=== PATIENT | female | born 1955 | race Caucasian/White ===

== ENCOUNTER 2019-09-10 05:46 | Inpatient (IN) | payer OTHER ==
[2019-08-18 12:02] VITALS: BMI 36.1
[2019-09-10] MEDS ORDERED: MIDAZOLAM HCL 2 MG/2 ML SINGLE DOSE VIAL ONE ×2 (06:54→08:48)
[2019-09-10] MEDS ORDERED: SODIUM CHLORIDE 0.9% P/F 10 ML VIAL IJ ONE (06:54)
[2019-09-10] MEDS ORDERED: BUPIVACAINE LIPOSOME/PF (EXPAREL) 266 MG/20 ML VIAL ONE (06:54)
[2019-09-10] MEDS ORDERED: TRANEXAMIC ACID 1000 MG/10 ML VIAL IVPUSH ONE (07:28)
[2019-09-10] MEDS ORDERED: CEFAZOLIN 2 GM in DEXTROSE 5%-WATER - 50 ML IVPB ONE (07:28)
[2019-09-10] MEDS ORDERED: ceFAZolin SODIUM 1 GM VIAL ONE ×2 (07:45→11:27)
[2019-09-10] MEDS ORDERED: TRANEXAMIC ACID 1000 MG/10 ML VIAL ONE ×2 (07:45→11:27)
[2019-09-10] MEDS ORDERED: PROPOFOL 20 ML ONE ×8 (07:53→11:57)
[2019-09-10] MEDS ORDERED: SUCCINYLCHOLINE CHLORIDE 200 MG/10 ML SYRINGE ONE (07:53)
[2019-09-10] MEDS ORDERED: BUPIVACAINE HCL/PF 0.5% (5MG/ML) 10 ML VIAL ONE (07:56)
[2019-09-10] MEDS ORDERED: VANCOMYCIN 1,000 MG VIAL (RESTRICTED TO ID ONLY) ONE (09:14)
[2019-09-10] MEDS ORDERED: oxyCODONE HCL 5 MG TABLET PO PRN ×2 (10:14)
[2019-09-10] MEDS ORDERED: ONDANSETRON 4 MG/2 ML VIAL IVPUSH PRN ×2 (10:14→11:53)
[2019-09-10] MEDS ORDERED: BENZOIN/ALOE VERA/STORAX/TOLU 58 ML BOTTLE ONE (11:15)
[2019-09-10] MEDS ORDERED: MAGNESIUM HYDROX 2400MG/30ML ORAL SUSPENSION 30 ML CUP PO PRN (11:53)
[2019-09-10] MEDS ORDERED: MAG HYDROX/AL HYDROX/SIMETH 30 ML UNIT-DOSE CUP PO PRN (11:53)
[2019-09-10] MEDS ORDERED: LACTATED RINGERS SOLUTION 1,000 ML IV SCH (12:00)
--- NOTE | 2019-09-10 12:05 | PN ---
Progress Note (short form) - Note Progress Note: S/P L TKA POD #0 - Pain control. -DVT PPx: -Chemical: ASA 81 mg po BID x 6 weeks -Mechanical: AGA's, SCD's -Incentive Spirometry. -PT/OT/Rehab, OOB. -WBAT LLE -f/u drain output -f/u am labs. -Care per medical hospitalist team. -Discharge planning: f/u [facility] rehabilitation worker for appointment: -Will follow. Mino Gonsales MD (Orthopaedic Surgery)
--- NOTE | 2019-09-10 12:07 | OP ---
Operative Note - Note: Operative Date: 09/10/19 Pre-Operative Diagnosis: Left knee osteoarthritis Operation: Left Total knee Arthroplasty Post-Operative Diagnosis: Same as Pre-op Surgeon: Mino Gonsales Project Scheduler: Ross Gonsales Anesthesiologist/SHEARER [employer] BOARDS: Myron Mlaik Anesthesia: Spinal, Local (block with sedation) Specimens Removed: distal femur, proximal tibia, partial patela Estimated Blood Loss (mls): 150 Drains & Tubes with Location: Hemavac Operative Report Dictated: Yes
[2019-09-10] MEDS ORDERED: ONDANSETRON 4 MG/2 ML VIAL ONE (12:58)
[2019-09-10] MEDS: ACETAMINOPHEN 325 MG TABLET (FP) PO SCH ×3 (13:15→23:50)
[2019-09-10] MEDS: LACTATED RINGERS SOLUTION 1,000 ML IV SCH (13:15)
[2019-09-10] MEDS ORDERED: ACETAMINOPHEN 325 MG TABLET (FP) ONE (13:23)
[2019-09-10] MEDS ORDERED: HYDROmorphone HCL 2 MG TABLET PO PRN (13:50)
[2019-09-10] MEDS: FERROUS SO4 325 MG TABLET (FP) PO SCH (18:01)
[2019-09-10] MEDS: CEFAZOLIN 1 GM/D5W 1 GM/50 ML BAG IVPB SCH ×2 (18:02→23:51)
--- NOTE | 2019-09-10 19:40 | HP ---
HISTORY OF PRESENT ILLNESS: 64 year-old female with a PMH significant for kidney stones, recurrent UTIs, and left knee degenerative joint disease s/p left total knee arthroplasty on with Dr. Mino Gonsales. Recent Travel: No PAST MEDICAL HISTORY: Kidney stones Recurrent UTIs PAST SURGICAL HISTORY: Gastric bypass Social History: Smoking: no Alcohol: social Drugs: no Family history: non-contributory Allergies oxycodone Adverse Reaction (Severe, Verified 09/10/19 06:57) Vomiting HOME MEDICATIONS: Home Medications Medication Instructions Recorded Ascorbic Acid [Vitamin C] 500 mg PO DAILY 08/18/19 Cholecalciferol (Vitamin D3) 2,000 unit PO DAILY 08/18/19 [Vitamin D3] Cyanocobalamin [Vitamin B12 -] 1,000 mcg PO DAILY 08/18/19 Ferrous Sulfate 325 mg PO DAILY 08/18/19 Sulfamethoxazole/Trimethoprim 1 tab PO BID 09/10/19 [Bactrim Ds -] REVIEW OF SYSTEMS CONSTITUTIONAL: Absent: fever, chills, diaphoresis, generalized weakness, malaise, loss of appetite, weight change HEENT: Absent: rhinorrhea, nasal congestion, throat pain, throat swelling, difficulty swallowing, mouth swelling, ear pain, eye pain, visual changes CARDIOVASCULAR: Absent: chest pain, syncope, palpitations, irregular heart rate, lightheadedness , peripheral edema RESPIRATORY: Absent: cough, shortness of breath, dyspnea with exertion, orthopnea, wheezing, stridor, hemoptysis GASTROINTESTINAL: Absent: abdominal pain, abdominal distension, nausea, vomiting, diarrhea, constipation, melena, hematochezia GENITOURINARY: Absent: dysuria, frequency, urgency, hesitancy, hematuria, flank pain, genital pain MUSCULOSKELETAL: Absent: myalgia, arthralgia, joint swelling, back pain, neck pain SKIN: Absent: rash, itching, pallor HEMATOLOGIC/IMMUNOLOGIC: Absent: easy bleeding, easy bruising, lymphadenopathy, frequent infections ENDOCRINE: Absent: unexplained weight gain, unexplained weight loss, heat intolerance, cold intolerance NEUROLOGIC: Absent: headache, focal weakness or paresthesias, dizziness, unsteady gait, seizure, mental status changes, bladder or bowel incontinence PSYCHIATRIC: Absent: anxiety, depression, suicidal or homicidal ideation, hallucinations. PHYSICAL EXAMINATION Vital Signs - 24 hr 09/10/19 09/10/19 09/10/19 06:58 12:30 12:35 Temperature 98.2 F 97.5 F L Pulse Rate 73 61 61 Respiratory 16 12 12 Rate Blood Pressure 135/82 132/77 128/72 O2 Sat by Pulse 98 98 Oximetry (%) 09/10/19 09/10/19 09/10/19 12:40 12:45 13:00 Temperature 97.5 F L Pulse Rate 61 61 61 Respiratory 12 12 12 Rate Blood Pressure 128/72 125/66 125/65 O2 Sat by Pulse 98 98 98 Oximetry (%) 09/10/19 09/10/19 09/10/19 13:15 13:18 14:11 Temperature 97.5 F L 97.4 F L Pulse Rate 61 61 62 Respiratory 12 12 18 Rate Blood Pressure 126/72 126/72 118/71 O2 Sat by Pulse 98 98 100 Oximetry (%) GENERAL: Awake, alert, and fully oriented, in no acute distress. HEAD: Normal with no signs of trauma. EYES: Pupils equal, round and reactive to light, extraocular movements intact, sclera anicteric, conjunctiva clear. No lid lag. EARS, NOSE, THROAT: Ears normal, nares patent, oropharynx clear without exudates. Moist mucous membranes. NECK: Normal range of motion, supple without lymphadenopathy, JVD, or masses. LUNGS: Breath sounds equal, clear to auscultation bilaterally. No wheezes, and no crackles. No accessory muscle use. HEART: Regular rate and rhythm, normal S1 and S2 without murmur, rub or gallop. ABDOMEN: Soft, nontender, not distended, normoactive bowel sounds, no guarding, no rebound, no masses. No hepatomegaly or splenomegaly. MUSCULOSKELETAL: Normal range of motion at all joints. No bony deformities or tenderness. No CVA tenderness. UPPER EXTREMITIES: 2+ pulses, warm, well-perfused. No cyanosis. No clubbing. No peripheral edema. LOWER EXTREMITIES: 2+ pulses, warm, well-perfused. No calf tenderness. No peripheral edema. NEUROLOGICAL: Cranial nerves II-XII intact. Normal speech. Normal gait. PSYCHIATRIC: Cooperative. Good eye contact. Appropriate mood and affect. SKIN: Warm, dry, normal turgor, no rashes or lesions noted, normal capillary refill. Pre op Hgb 11.3 BUN 20 Cr 0,7 Intra op Ancef x 2g; vanc x 1g No anthony, free void LR 800 EBL <100 ASSESSMENT/PLAN 64 year-old female with a PMH significant for kidney stones, recurrent UTIs, and left knee degenerative joint disease s/p left total knee arthroplasty. Left total knee arthroplasty 09/10/19 --POD #0 --perioperative antibiotics per surgery --pain management per surgery --ASA 81mg BID --protonix --bowel regimen --incentive spirometry --Hemovac drain, monitor output FEN Fluids: LR@125mL/hr Electrolytes: replete as indicated Nutrition: regular diet DVT prophylaxis: OOB, ambulation, SCDs, TEDs, ASA 81mg BID Physical therapy Dispo: continues to require inpatient care. Full code. Visit type - Emergency Visit Emergency Visit: No - New Patient This patient is new to me today: Yes Date on this admission: 09/12/19 - Critical Care Critical Care patient: No
[2019-09-10] MEDS ORDERED: VANCOMYCIN 1 GRAM (PRE-DOCKED) 1,000 MG/250 ML BAG IVPB ONE (21:00)
[2019-09-10] MEDS: SULFAMETHOXAZOLE/TRIMETHOPRIM 800MG/160MG D.S. TABLET PO SCH (21:34)
[2019-09-10] MEDS: ASPIRIN 81 MG CHEWABLE TABLETS PO SCH (21:34)
[2019-09-10] MEDS: SENNOSIDES/DOCUSATE COMBO (SENNA PLUS) TABLET (UD) PO SCH (21:34)
[2019-09-10] MEDS: traMADol HCL 50 MG TABLET PO PRN (21:36)
[2019-09-11] MEDS: traMADol HCL 50 MG TABLET PO PRN ×2 (03:23→08:39)
[2019-09-11] MEDS: CEFAZOLIN 1 GM/D5W 1 GM/50 ML BAG IVPB SCH (05:42)
[2019-09-11] MEDS: ACETAMINOPHEN 325 MG TABLET (FP) PO SCH ×3 (05:43→18:03)
[2019-09-11] MEDS: FERROUS SO4 325 MG TABLET (FP) PO SCH ×2 (08:07→18:03)
[2019-09-11 08:21] LABS: CALCIUM 8.7 mg/dl (8.5-10); CREATININE 0.7 mg/dl (0.55-1.3); POTASSIUM 4.7 mmol/L (3.5-5.1)
[2019-09-11 08:24] LABS: HEMOGLOBIN 12.1 GM/dl (10.7-15.3); MCH 24.9 pg (25.7-33.7); MCHC 31.9 g/dl (32.0-36.0); MEAN PLT VOLUME 9.1 fl (7.5-11.1); PLATELET COUNT 216 K/MM3 (134-434); RBC 4.87 M/mm3 (3.60-5.2); RDW 14.7 % (11.6-15.6); WHITE BLOOD COUNT 11.1 K/mm3 (4.0-10.8)
--- NOTE | 2019-09-11 09:03 | PN ---
Progress Note (short form) - Note Progress Note: ORTHOPAEDIC SURGERY POD #1 s/p left total knee arthroplasty Alert. Sitting in chair at bedside with legs in extension and towel roll under her heels. States she ambulated with walker to bathroom and spontaneously voided. C/o incisional pain. Adequate pain control with medications ordered. Denies n/v/f/c, CP, palpitations, SOB or JIMENEZ. Last Vital Signs Temp Pulse Resp BP Pulse Ox 98.6 F 88 19 124/66 97 09/11/19 06:00 09/11/19 06:00 09/11/19 06:00 09/11/19 06:00 09/11/19 06:51 CBC, BMP 09/11/19 07:29 09/11/19 07:29 Drain Output 09/10/19 09/11/19 09/11/19 22:53 00:49 06:58 Hemovac 80 80 110 PE Gen: alert. nad RLE: ice pack in place. dressing c/d/i. Hemovac (sanguinous). All compartments soft. SCDs bilat. +2 DP/PT bilat. Foot warm. Knee flexion to 90 degrees. Problem List - Problems (1) Status post total left knee replacement Assessment/Plan: S/P L TKA POD #1 - Pain control. -DVT PPx: -Chemical: ASA 81 mg po BID x 6 weeks -Mechanical: AGA's, SCD's -Incentive Spirometry. -PT, OOB. -WBAT LLE -f/u drain output -f/u am labs. -Care per medical hospitalist team. -Discharge planning: f/u [facility] [place] [facility] onCall for appointment : -Will follow Above plan discussed with Dr. Ross Gonsales and agrees Code(s): Z96.652 - PRESENCE OF LEFT ARTIFICIAL KNEE JOINT (2) Osteoarthritis of left knee Code(s): M17.12 - UNILATERAL PRIMARY OSTEOARTHRITIS, LEFT KNEE
[2019-09-11] MEDS: SULFAMETHOXAZOLE/TRIMETHOPRIM 800MG/160MG D.S. TABLET PO SCH ×2 (09:45→21:17)
[2019-09-11] MEDS: MULTIVITAMINS (DAILY MVI) TABLET (FP) PO SCH (09:45)
[2019-09-11] MEDS: PANTOPRAZOLE 40 MG TABLET PO SCH (09:45)
[2019-09-11] MEDS: ASPIRIN 81 MG CHEWABLE TABLETS PO SCH ×2 (09:45→21:16)
[2019-09-11] MEDS: ACETAMINOPHEN WITH CODEINE 300MG/30MG TABLET PO PRN ×2 (09:45→22:23)
[2019-09-11] MEDS: CYANOCOBALAMIN 1,000 MCG TABLET (FP) PO SCH (09:45)
[2019-09-11] MEDS: ASCORBIC ACID 500 MG TABLET (FP) PO SCH (09:45)
[2019-09-11] MEDS: CHOLECALCIFEROL (VIT D3) 1,000 UNIT (25 MCG) TABLET PO SCH (09:46)
[2019-09-11] MEDS: SENNOSIDES/DOCUSATE COMBO (SENNA PLUS) TABLET (UD) PO SCH ×2 (09:46→21:16)
[2019-09-11] MEDS ORDERED: SULFAMETHOXAZOLE/TRIMETHOPRIM 800MG/160MG D.S. TABLET PO SCH (10:00)
--- NOTE | 2019-09-11 10:19 | OP ---
DATE OF OPERATION: DATE OF DICTATION: 09/10/2019 SURGEON: Mino Gonsales MD ASSISTANTS: Ross Gonsales MD; Barbara Parks PA-C PREOPERATIVE DIAGNOSIS: Tricompartment osteoarthritis, left knee. POSTOPERATIVE DIAGNOSIS: Tricompartment osteoarthritis, left knee. OPERATION PERFORMED: Left posterior-stabilized total knee arthroplasty ([place]). ANESTHESIA: Conscious sedation with peripheral nerve block and spinal anesthesia. ANTIBIOTICS GIVEN: Ancef 2 g were given, 1 g of vancomycin preop, 1 g Ancef given at the end of the procedure. TXA utilized a well. TOURNIQUET TIME: 100 minutes. OPERATION DETAILS: Patient correctly identified, brought to the operating room. Left lower extremity was prepped and draped in the routine manner with Betadine scrub solution, wiped off with alcohol, DuraPrep applied. Free drape applied to the left lower extremity. Timeout was called. Imaging was available for the intraoperative evaluation. Tourniquet was applied. Midline incision just about 3 inches above the superior pole of the patella to just distal to the tibial tubercle. The incision was made longitudinally through the subcutaneous tissue to the entire myofascial elements around the knee using a sub vastus approach which required a sharp dissection along the proximal medial aspect of the tibia medial to the tibial tubercle curving proximally right up to the surface of the tibia. At this point the epimysium of the vastus medialis was lifted and dissected off the actual muscle and with that the muscle mobilized effectively. The distal limb of this incision was the proximal tibial incision which was then curved from about the inferior pole of the patella towards the medial femoral condyle towards linea aspera and this helped facilitate the complete lifting of the vastus medialis and hence the entire patella lifted and was retracted laterally without any difficulty. The knee was extremely tight, revealed the presence of severe osteoarthritis, the worst in the medial compartment but extensive disease of the entire knee noted with significant synovitis diffusely throughout. The limb initially at preop assessment revealed a limb with full extension but a fixed varus deformity of approximately 10 degrees. Using the [employer] instrumentation the tibial cut was made first. The cut was made neutral to the tibia; 2 mm of bone was resected off the medial side. Once this had been performed the femoral cuts were made by inserting a drill hole into the femur. This was performed distally to open up the femoral introitus to the femoral canal. The intramedullary sword was inserted into the intramedullary canal and the jig applied to this was set for 8 mm of resection of the distal tibia and 4 degrees of varus; 4-1/2 degrees of external rotation were built into the implant as well. The jig cuts were made with the appropriate jig device, anterior, posterior as well as the anterior and posterior chamfers being made, and a femoral trial component inserted to this revealed excellent seating with no gaps and complete accuracy achieved. The flexion/extension gaps were measured evenly at 13 mm. Once this had been performed the trialing of the components after careful measurements revealed that the femur was size 5, the tibia was size 4 and the patella which was at this point cut by utilizing Niya line from patellar ligament to quadriceps tendon with the patella everted. The lug holes were then drilled into the jig, thus bringing about completion of all bony cuts. Insertion of the trialing elements revealed excellent alignment of the knee. That is, in full extension the knee was straight as well as in the lateral position. In addition to this patellar tracking was normal. Once we were satisfied with all these bony cuts and sizings the bone beds were thoroughly lavaged. At that point a diffuse synovectomy was performed throughout the entire knee. The lavage was then completed one more time and cementing of the 3 implants all in 1 stage, laying the tibia first followed by femur followed by patella. All extraneous cement was removed once the cement had properly cured and hardened effectively. A size 13 trial component after trialing 9 and 11 revealed that 13 was the best with still a jog of laxity in the medial and lateral plane. Even though flexion and extension gaps were even and there were equal rectangles noted on the assessment of the flexion and extension gaps it was elected to use a TS because it was a more constrained polyethylene liner for stability. This was inserted with no difficulty. The knee was put through a range of motion of 0-120 degrees stability in the coronal and sagittal normal. Shock test revealed normal tension of the medial joint space in terms of medial collateral tension. Once the polyethylene was inserted the knee was placed through a range of motion revealing excellent kinematics and excellent alignment. The wounds were thoroughly lavaged once again with saline. Closure was with fascia 1 Vicryl, subcutaneous 1 and 2-0 Vicryl, skin 3-0 Monocryl with Steri-Strips. Drainage 1/8-inch Hemovac brought out laterally through the sub vastus bed. Operation went well. No complications. MD HERMILO Dickson/[id number]
[2019-09-11] MEDS ORDERED: GUM MASTIC/STORAX/MSAL/ALCOHOL 1 DRP DROPSBTL MC ONE ×2 (11:45→11:56)
[2019-09-11] MEDS: LACTATED RINGERS SOLUTION 1,000 ML IV SCH (12:42)
--- NOTE | 2019-09-11 14:07 | PN ---
Progress Note (short form) - Note Progress Note: 64F POD1 s/p L TKR under spinal with peripheral nerve blocks for post operative pain relief doing well. Pt states pain controlled and denies any anesthetic complications. AVSS. Continue current regimen.
--- NOTE | 2019-09-11 16:23 | PATH ---
Surgical Pathology Report Patient Name: ARMANDO COLE Med. Rec. #: [id number] /Age/Gender: 1955 (Age: 64) / F Account: [id number] [facility] Taken: 09/10/2019 Received: 09/10/2019 Reported: 09/11/2019 Physicians: Mino Gonsales M.D. Specimen(s) Received BONES LEFT KNEE Clinical History Bilateral primary osteoarthritis of knee Final Diagnosis BONES, KNEE, LEFT, TOTAL KNEE REPLACEMENT: BONE WITH DEGENERATIVE JOINT DISEASE AND REACTIVE SYNOVIUM. Electronically Signed Nargis Flaherty M.D. Gross Description Received in formalin labeled "bone left knee," is a 13.5 x 11.5 x 2.3 cm aggregate of multiple portions of bone and soft tissue. The tibial plateau measures 7.5 x 5.4 x 1.7 cm. There are multiple areas of eburnation present, measuring up to 3.0 cm in greatest dimension. The remaining articular surfaces are cochran-yellow and focally granular. The underlying trabecular bone is yellow and hard. [employer] Sales Representative sections are submitted in one cassette, following decalcification. DL/09/10/2019 saudi/09/10/2019
[2019-09-11] MEDS ORDERED: MELATONIN 1 MG TABLET PO ONE (21:00)
[2019-09-11 22:34] VITALS: PULSE 95; TEMP 98
[2019-09-12] MEDS: ACETAMINOPHEN 325 MG TABLET (FP) PO SCH ×2 (01:30→05:00)
[2019-09-12] MEDS: traMADol HCL 50 MG TABLET PO PRN (04:00)
[2019-09-12 06:53] VITALS: BP 112/58
[2019-09-12 07:40] LABS: HEMATOCRIT 35.3 % (32.4-45.2); HEMOGLOBIN 11.3 GM/dl (10.7-15.3); MCH 24.7 pg (25.7-33.7); MCHC 31.9 g/dl (32.0-36.0); MEAN CELL VOLUME 77.6 fl (80-96); MEAN PLT VOLUME 9.1 fl (7.5-11.1); PLATELET COUNT 210 K/MM3 (134-434); RBC 4.55 M/mm3 (3.60-5.2); RDW 14.8 % (11.6-15.6); WHITE BLOOD COUNT 12.5 K/mm3 (4.0-10.8)
[2019-09-12] MEDS: FERROUS SO4 325 MG TABLET (FP) PO SCH (08:10)
--- NOTE | 2019-09-12 09:05 | PN ---
Physical Exam: SUBJECTIVE: Patient seen and examined OBJECTIVE: Vital Signs Period Temp Pulse Resp BP Sys/Ashraf Pulse Ox Last 24 Hr 97.8 F-99.6 F 84-95 18-18 112-135/57-66 94-98 GENERAL: The patient is awake, alert, and fully oriented, in no acute distress. HEAD: Normal with no signs of trauma. EYES: PERRL, extraocular movements intact, sclera anicteric, conjunctiva clear. No ptosis. ENT: Ears normal, nares patent, oropharynx clear without exudates, moist mucous membranes. NECK: Trachea midline, full range of motion, supple. LUNGS: Breath sounds equal, clear to auscultation bilaterally, no wheezes, no crackles, no accessory muscle use. HEART: Regular rate and rhythm, S1, S2 without murmur, rub or gallop. ABDOMEN: Soft, nontender, nondistended, normoactive bowel sounds, no guarding, no rebound, no hepatosplenomegaly, no masses. EXTREMITIES: 2+ pulses, warm, well-perfused, no edema. NEUROLOGICAL: Cranial nerves II through XII grossly intact. Normal speech, gait not observed. PSYCH: Normal mood, normal affect. SKIN: Warm, dry, normal turgor, no rashes or lesions noted Laboratory Results - last 24 hr 09/12/19 06:59 WBC 12.5 H RBC 4.55 Hgb 11.3 Hct 35.3 MCV 77.6 L MCH 24.7 L MCHC 31.9 L RDW 14.8 Plt Count 210 MPV 9.1 Active Medications Generic Name Dose Route Start Last Admin Trade Name Harshaq PRN Reason Stop Dose Admin Acetaminophen 650 mg 09/10/19 12:00 09/12/19 05:00 Tylenol - PO 09/13/19 11:59 650 mg Q6H REEMA Administration Acetaminophen/Codeine Phosphate 1 tab 09/11/19 09:06 09/11/19 22:23 Tylenol # 3 - PO 1 tab Q4H PRN Administration PAIN LEVEL 1-5 Al Hydroxide/Mg Hydroxide 30 ml 09/10/19 11:53 Mylanta Oral Suspension - PO Q4H PRN DYSPEPSIA Ascorbic Acid 500 mg 09/11/19 10:00 09/11/19 09:45 Vitamin C - PO 500 mg DAILY REEMA Administration Aspirin 81 mg 09/10/19 22:00 09/11/19 21:16 Asa - PO 81 mg BID REEMA Administration Cholecalciferol 2,000 unit 09/11/19 10:00 09/11/19 09:46 Vitamin D3 - PO 2,000 unit DAILY REEMA Administration Cyanocobalamin 1,000 mcg 09/11/19 10:00 09/11/19 09:45 Vitamin B12 - PO 1,000 mcg DAILY REEMA Administration Ferrous Sulfate 325 mg 09/10/19 17:30 09/11/19 18:03 Feosol - PO 325 mg BIDWM REEMA Administration Hydromorphone HCl 2 mg 09/10/19 13:50 Dilaudid - PO Q4HWA PRN PAIN LEVEL 4 - 6 Hydromorphone HCl 4 mg 09/10/19 13:50 09/12/19 08:54 Dilaudid - PO 4 mg Q4H PRN Administration PAIN LEVEL 7 - 10 Lactated Ringer's 1,000 mls @ 125 mls/hr 09/10/19 10:15 09/11/19 12:42 Lactated Ringers Solution IV 125 mls/hr ASDIR [facility] Administration Magnesium Hydroxide 30 ml 09/10/19 11:53 Milk Of Magnesia - PO PRN PRN CONSTIPATION Multivitamins/Minerals/Vitamin C 1 tab 09/11/19 10:00 09/11/19 09:45 Tab-A-Vit - PO 1 tab DAILY [facility] Administration Ondansetron HCl 4 mg 09/10/19 11:53 Zofran Injection IVPUSH Q6H PRN NAUSEA Pantoprazole Sodium 40 mg 09/11/19 10:00 09/11/19 09:45 Protonix - PO 40 mg DAILY REEMA Administration Senna/Docusate Sodium 2 tablet 09/10/19 22:00 09/11/19 21:16 Pericolace - PO 2 tablet BID [facility] Administration Tramadol HCl 50 mg 09/10/19 10:14 09/12/19 04:00 Ultram - PO 50 mg Q3H PRN Administration PAIN LEVEL 1 - 3 Trimethoprim/Sulfamethoxazole 1 each 09/10/19 22:00 09/11/19 21:17 Bactrim Ds - PO 1 each BID REEMA Administration ASSESSMENT/PLAN:
--- NOTE | 2019-09-12 09:05 | PN ---
Physical Exam: SUBJECTIVE: Patient seen and examined in PT room. OBJECTIVE: Vital Signs Period Temp Pulse Resp BP Sys/Asrhaf Pulse Ox Last 24 Hr 97.8 F-99.6 F 84-95 18-18 112-135/57-66 94-98 GENERAL: The patient is awake, alert, and fully oriented, in no acute distress. LUNGS: Breath sounds equal, clear to auscultation bilaterally, no wheezes, no crackles, no accessory muscle use. HEART: Regular rate and rhythm, S1, S2 ABDOMEN: Soft, nontender, nondistended, LLE: Surgical dressing c/d/i NEUROLOGICAL: Cranial nerves II through XII grossly intact. Normal speech, doing exercises PSYCH: Normal mood, normal affect. SKIN: Warm, dry, normal turgor, no rashes or lesions noted Laboratory Results - last 24 hr 09/12/19 06:59 WBC 12.5 H RBC 4.55 Hgb 11.3 Hct 35.3 MCV 77.6 L MCH 24.7 L MCHC 31.9 L RDW 14.8 Plt Count 210 MPV 9.1 Active Medications Generic Name Dose Route Start Last Admin Trade Name Freq PRN Reason Stop Dose Admin Acetaminophen 650 mg 09/10/19 12:00 09/12/19 05:00 Tylenol - PO 09/13/19 11:59 650 mg Q6H REEMA Administration Acetaminophen/Codeine Phosphate 1 tab 09/11/19 09:06 09/11/19 22:23 Tylenol # 3 - PO 1 tab Q4H PRN Administration PAIN LEVEL 1-5 Al Hydroxide/Mg Hydroxide 30 ml 09/10/19 11:53 Mylanta Oral Suspension - PO Q4H PRN DYSPEPSIA Ascorbic Acid 500 mg 09/11/19 10:00 09/11/19 09:45 Vitamin C - PO 500 mg DAILY REEMA Administration Aspirin 81 mg 09/10/19 22:00 09/11/19 21:16 Asa - PO 81 mg BID REEMA Administration Cholecalciferol 2,000 unit 09/11/19 10:09/11/19 09:46 Vitamin D3 - PO 2,000 unit DAILY REEMA Administration Cyanocobalamin 1,000 mcg 09/11/19 10:00 09/11/19 09:45 Vitamin B12 - PO 1,000 mcg DAILY REEMA Administration Ferrous Sulfate 325 mg 09/10/19 17:30 09/11/19 18:03 Feosol - PO 325 mg BIDWM REEMA Administration Hydromorphone HCl 2 mg 09/10/19 13:50 Dilaudid - PO Q4HWA PRN PAIN LEVEL 4 - 6 Hydromorphone HCl 4 mg 09/10/19 13:50 09/12/19 08:54 Dilaudid - PO 4 mg Q4H PRN Administration PAIN LEVEL 7 - 10 Lactated Ringer's 1,000 mls @ 125 mls/hr 09/10/19 10:15 09/11/19 12:42 Lactated Ringers Solution IV 125 mls/hr ASDIR REEMA Administration Magnesium Hydroxide 30 ml 09/10/19 11:53 Milk Of Magnesia - PO PRN PRN CONSTIPATION Multivitamins/Minerals/Vitamin C 1 tab 09/11/19 10:00 09/11/19 09:45 Tab-A-Vit - PO 1 tab DAILY REEMA Administration Ondansetron HCl 4 mg 09/10/19 11:53 Zofran Injection IVPUSH Q6H PRN NAUSEA Pantoprazole Sodium 40 mg 09/11/19 10:00 09/11/19 09:45 Protonix - PO 40 mg DAILY REEMA Administration Senna/Docusate Sodium 2 tablet 09/10/19 22:00 09/11/19 21:16 Pericolace - PO 2 tablet BID REEMA Administration Tramadol HCl 50 mg 09/10/19 10:14 09/12/19 04:00 Ultram - PO 50 mg Q3H PRN Administration PAIN LEVEL 1 - 3 Trimethoprim/Sulfamethoxazole 1 each 09/10/19 22:00 09/11/19 21:17 Bactrim Ds - PO 1 each BID REEMA Administration ASSESSMENT/PLAN 64 year-old female with a PMH significant for kidney stones, recurrent UTIs, and left knee degenerative joint disease s/p left total knee arthroplasty. Left total knee arthroplasty 09/10/19 --POD #1 --perioperative antibiotics complete --pain management per surgery --ASA 81mg BID --protonix --bowel regimen --incentive spirometry --Hemovac drain, monitor output FEN Fluids: PO intake adequate Electrolytes: replete as indicated Nutrition: regular diet DVT prophylaxis: OOB, ambulation, SCDs, TEDs, ASA 81mg BID Physical therapy Dispo: continues to require inpatient care. Full code. Visit type Visit type - Emergency Visit Emergency Visit: No - New Patient This patient is new to me today: No - Critical Care Critical Care patient: No
[2019-09-12] MEDS: SULFAMETHOXAZOLE/TRIMETHOPRIM 800MG/160MG D.S. TABLET PO SCH (10:43)
[2019-09-12] MEDS: ASPIRIN 81 MG CHEWABLE TABLETS PO SCH (10:43)
[2019-09-12] MEDS: MULTIVITAMINS (DAILY MVI) TABLET (FP) PO SCH (10:44)
[2019-09-12] MEDS: SENNOSIDES/DOCUSATE COMBO (SENNA PLUS) TABLET (UD) PO SCH (10:44)
[2019-09-12] MEDS: PANTOPRAZOLE 40 MG TABLET PO SCH (10:44)
[2019-09-12] MEDS: CYANOCOBALAMIN 1,000 MCG TABLET (FP) PO SCH (10:45)
[2019-09-12] MEDS: ASCORBIC ACID 500 MG TABLET (FP) PO SCH (10:46)
[2019-09-12] MEDS: CHOLECALCIFEROL (VIT D3) 1,000 UNIT (25 MCG) TABLET PO SCH (10:46)
--- NOTE | 2019-09-12 12:36 | DS ---
Physical Exam: SUBJECTIVE: Patient seen and examined OBJECTIVE: Vital Signs Period Temp Pulse Resp BP Sys/Ashraf Pulse Ox Last 24 Hr 97.8 F-98.2 F 90-95 18-18 112-135/57-66 94-98 PHYSICAL EXAM GENERAL: The patient is awake, alert, and fully oriented, in no acute distress. LUNGS: Breath sounds equal, clear to auscultation bilaterally, no wheezes, no crackles, no accessory muscle use. HEART: Regular rate and rhythm, S1, S2 ABDOMEN: Soft, nontender, nondistended, LLE: Surgical dressing c/d/i NEUROLOGICAL: Cranial nerves II through XII grossly intact. Normal speech, doing exercises PSYCH: Normal mood, normal affect. SKIN: Warm, dry, normal turgor, no rashes or lesions noted Laboratory Results - last 24 hr 09/12/19 06:59 WBC 12.5 H RBC 4.55 Hgb 11.3 Hct 35.3 MCV 77.6 L MCH 24.7 L MCHC 31.9 L RDW 14.8 Plt Count 210 MPV 9.1 HOSPITAL COURSE: Date of Admission:09/10/19 Date of Discharge: 09/12/19 64 year-old female with a PMH significant for kidney stones, recurrent UTIs, and left knee degenerative joint disease s/p left total knee arthroplasty. Left total knee arthroplasty 09/10/19 --perioperative antibiotics complete --pain well-managed with PO meds --ASA 81mg BID x 6 weeks Minutes to complete discharge: 35 Discharge Summary Problems reviewed: Yes Reason For Visit: BILATERAL PRIMARY OSTEOARTHRITIS OF KNEE Current Active Problems Osteoarthritis of left knee (Acute) Status post total left knee replacement (Acute) Condition: Good - Instructions Diet, Activity, Other Instructions: Dr. Gonsales Discharge Instructions for Knee Replacement Post Operative Instructions Physical activity Physical Therapist will come to your home for the first 5 days. You will be set up with outpatient PT at your first post-operative visit. Use assistive devices for ambulation at all times. Weight bearing as tolerated on your surgical side. Do not put pillow under knee. May put pillow under heel. Wound care Leave your surgical dressing in place. Do not change the dressing until seen by your surgeon in the office. No baths or showers. Do not submerge your incision. Do not apply any ointments or lotions to your incision. Please call the office if your dressing is soiled/dirty or is falling off. Apply Graduated Compression Stockings (TEDS) to both lower extremities - remove daily for hygiene ONLY. Diet There are no dietary restrictions. Eat healthy, high-fiber foods. Drink 6 to 8 glasses of liquid each day. This will assist in keeping your bowels are regular. Pain management Any pain prescription medication ordered should be taken as prescribed for moderate to severe pain. Do not take additional Tylenol while taking Percocet. Take Aspirin 81 mg two times a day for a total of 6 weeks to prevent blood clots. Continue Bactrim DS for 5 days following your surgery. Call Dr. Gonsales for any of the following: Severe pain not relieved by medication Fever of 101 or higher Excessive bleeding or drainage on dressing Inability to urinate If you experience chest pain or shortness of breath, please seek emergency care immediately. Please call the office at to confirm your post-op appointment for the week following surgery. Disposition: HOME - Home Medications Comprehensive Discharge Medication List: Ambulatory Orders Ascorbic Acid [Vitamin C] 500 mg PO DAILY 08/18/19 Cholecalciferol (Vitamin D3) [Vitamin D3] 2,000 unit PO DAILY 08/18/19 Cyanocobalamin [Vitamin B12 -] 1,000 mcg PO DAILY 08/18/19 Ferrous Sulfate 325 mg PO DAILY 08/18/19 Sulfamethoxazole/Trimethoprim [Bactrim Ds -] 1 tab PO BID 09/10/19 This patient is new to me today: No Emergency Visit: No Critical Care patient: No - Discharge Referral Referred to [facility] Med P.C.: No
--- NOTE | 2019-09-12 14:03 | PN ---
Progress Note (short form) - Note Progress Note: POD#2 pt seen earlier this am and after lunch to remove the drain. No CP or SOB. OOB and ambulating with PT. Voiding without difficulty. Vital Signs Period Temp Pulse Resp BP Sys/Ashraf Pulse Ox Last 24 Hr 97.8 F-98.0 F 90-95 18-18 112-135/57-66 94-98 JAIMEE; 60/80/40ml serosangrenous. GEN: A&0x3, NAD CV: RRR Lungs: CTA b/l Left knee: dressing c/d/i. Drain removed with the tip intact. /5 dorsi/plantar/ EHL b/l. b/l calf soft, non-tender, no swelling. AGA SCDS in place. CBC, BMP 09/12/19 06:59 09/11/19 07:29 A/P: 64 yo female s/p L TKR Pt doing well surgically, drain removed this afternoon Pt dishcarge to home Instructed pt on discharge instructions DVT ppx with aspirin 81 mg BID D/w Dr. Gonsales
== END 2019-09-12 13:30 | disposition home health service (06) | DRG 470 ==
LOC: FM/S 05:46 → UNDOADMIN 05:46 → FM/S 14:02
PROVIDERS: ADMIT Internal Medicine; ATTEND Nurse Practitioner Acute Care
PROC: 0SRD0JZ Replacement of Left Knee Joint with Synthetic Substitute, Open Approach (ICD-10-PCS; principal; 2019-09-10 08:00)
DX: M17.12 Unilateral primary osteoarthritis, left knee (principal); M17.0 Bilateral primary osteoarthritis of knee
CPT/HCPCS: 36415; 73560-TC-LT-FY; 80048; 85027; 94760; 97116-GP; 97163-GP